=== PATIENT | female | born 1960 | race Caucasian/White ===

== ENCOUNTER → 2017-07-13 | Outpatient (CLI) | payer OTHER ==
[~2017-07-13] MED LIST: ESZO3TAB28 PO; FLUO20CA19 PO; IBUP200C8 PO; LEVO750T26 PO; MELO15TA24 PO
[2017-07-13 13:43] LABS: BASOPHILS # (AUTO) 0.02 x10^3/uL (0-0.1); BASOPHILS % (AUTO) 1 % (0-1); EOSINOPHILS # (AUTO) 0.17 x10^3/uL (0-0.4); EOSINOPHILS % (AUTO) 4 % (1-7); LYMPHOCYTES # (AUTO) 1.53 x10^3/uL (1-3.4); LYMPHOCYTES % (AUTO) 38 % (22-44); MD NO; MEAN CORPUSCULAR HEMOGLOBIN 31.4 pg (27.0-34.8); MEAN CORPUSCULAR HGB CONC 33.4 g/dL (32.4-35.8); MEAN PLATELET VOLUME 8.4 fL (7.4-10.4); MONOCYTES # (AUTO) 0.33 x10^3/uL (0.2-0.8); MONOCYTES % (AUTO) 8 % (2-9); NEUTROPHILS % (AUTO) 49 % (42-75); PLATELET COUNT 194 x10^3/uL (130-400); RED BLOOD COUNT 4.51 x10^6/uL (3.82-5.3); RED CELL DISTRIBUTION WIDTH 12.8 % (9.6-15.2)
[2017-07-13 13:46] LABS: MICROSCOPIC NOT IND
[2017-07-13 13:54] LABS: ANION GAP 9 mmol/L (5-15); CHLORIDE 107 mmol/L (98-107); CREATININE 0.76 mg/dL (0.55-1.02)
[2017-07-13 14:02] LABS: CULTURE INDICATED? NO
== END | disposition home or self-care (01) ==
LOC: STAR 12:42
PROVIDERS: ATTEND Orthopaedic Surgery
DX: Z01.818 Encounter for other preprocedural examination (principal); M17.11 Unilateral primary osteoarthritis, right knee
CPT/HCPCS: 36415; 80048; 81003; 85025; 87081; 93005

== ENCOUNTER 2017-07-17 05:52 | Inpatient (IN) | payer OTHER ==
[~2017-07-17] VITALS: Ht 162.6 cm; Wt 77.0 kg
[2017-07-17] MEDS ORDERED: KETOROLAC 60 MG/2 ML ONE (06:25)
[2017-07-17] MEDS ORDERED: ROPIvacaine/PF 0.2%, 20 ML ONE (06:25)
[2017-07-17] MEDS ORDERED: TRANEXAMIC ACID 100 MG/ML, 10ML ONE (06:25)
[2017-07-17] MEDS ORDERED: SODIUM CHLORIDE 0.9% 100 ML ONE (06:26)
[2017-07-17] MEDS ORDERED: EPINEPHRINE 1 MG/ML, 1ML ONE (06:26)
[2017-07-17] MEDS ORDERED: VANCOMYCIN 1,000 MG ONE (06:26)
[2017-07-17] MEDS ORDERED: MIDAZOLAM 1 MG/ML, 5ML ONE (06:39)
[2017-07-17] MEDS ORDERED: FAMOTIDINE 20 MG TABLET ONE (06:55)
[2017-07-17] MEDS ORDERED: GABAPENTIN 300 MG CAPSULE ONE (06:55)
[2017-07-17] MEDS ORDERED: ACETAMINOPHEN 500 MG TABLET ONE (06:56)
[2017-07-17] MEDS ORDERED: ACETAMINOPHEN 500 MG TABLET PO ONE (07:00)
[2017-07-17] MEDS ORDERED: GABAPENTIN 300 MG CAPSULE PO ONE (07:00)
[2017-07-17] MEDS ORDERED: FAMOTIDINE 20 MG TABLET PO ONE (07:00)
[2017-07-17] MEDS ORDERED: TAMSULOSIN 0.4 MG CAP.ER.24H PO ONE (07:00)
[2017-07-17] MEDS ORDERED: CEFAZOLIN 1,000 MG ONE (07:21)
[2017-07-17] MEDS ORDERED: DEXAMETHASONE 4 MG/ML, 1ML ONE (07:21)
[2017-07-17] MEDS ORDERED: PROPOFOL 50 ML ONE (07:30)
[2017-07-17] MEDS ORDERED: PROPOFOL 0 ML ONE (07:30)
[2017-07-17] MEDS ORDERED: KETAMINE 10 MG/ML, 20ML ONE (07:47)
[2017-07-17] MEDS ORDERED: ROPIvacaine/PF 0.2%, 100ML 550 ML (check volume) INJ ONE (08:00)
[2017-07-17] MEDS ORDERED: FENTANYL PF 100 MCG/2ML IV PRN (08:30)
[2017-07-17] MEDS ORDERED: DIAZEPAM 5 MG/ML, 2ML IVPush PRN (08:30)
[2017-07-17] MEDS ORDERED: PROMETHAZINE 25 MG/ML, 1ML IV PRN (08:30)
[2017-07-17] MEDS ORDERED: OXYcodone 5 MG/5 ML ORAL.SOL UDC PO PRN (08:30)
[2017-07-17] MEDS: D5%-0.45% NACL 1,000 ML IV SCH ×2 (08:59→15:51)
[2017-07-17] MEDS ORDERED: BISACODYL 10 MG SUPP PR PRN (09:00)
[2017-07-17] MEDS ORDERED: ACETAMINOPHEN 650 MG/20.3 ML UDC PO PRN (09:00)
[2017-07-17] MEDS ORDERED: ALUMINUM/MAG/SIMETHICONE 30 ML UDC PO PRN (09:00)
[2017-07-17] MEDS ORDERED: DIAZEPAM 5 MG TABLET PO PRN (09:00)
[2017-07-17] MEDS ORDERED: HYDROmorphone 1 MG/ML, 1ML IV PRN (09:00)
[2017-07-17] MEDS ORDERED: SENNA/DOCUSATE TABLET PO PRN (09:00)
[2017-07-17] MEDS: KETOROLAC 30 MG/1 ML IV SCH ×3 (09:00→23:23)
[2017-07-17] MEDS ORDERED: ZOLPIDEM 5MG TABLET PO PRN (09:00)
[2017-07-17] MEDS ORDERED: PROMETHAZINE 25 MG/ML, 1ML IM PRN (09:00)
[2017-07-17] MEDS ORDERED: DIPHENHYDRAMINE 50 MG CAPSULE PO PRN (09:00)
[2017-07-17] MEDS ORDERED: PROMETHAZINE 12.5 MG SUPP PR PRN (09:00)
[2017-07-17] MEDS ORDERED: MAGNESIUM HYDROXIDE 8%, 30ML UDC PO PRN (09:00)
[2017-07-17] MEDS ORDERED: ONDANSETRON 4 MG TABLET PO PRN (09:00)
[2017-07-17] MEDS ORDERED: KETOROLAC 30 MG/1 ML IV SCH (09:00)
[2017-07-17] MEDS ORDERED: OXYcodone IR 5MG TABLET PO PRN (09:00)
[2017-07-17] MEDS: TAMSULOSIN 0.4 MG CAP.ER.24H PO SCH (09:30)
[2017-07-17] MEDS ORDERED: TRANEXAMIC ACID 1,000 MG in SODIUM CHLORIDE 0.9% 100 ML IVPB ONE (09:30)
[2017-07-17] MEDS: OXYcodone IR 5MG TABLET PO SCH ×4 (13:00→23:23)
[2017-07-17 13:06] VITALS: BP 106/72
[2017-07-17] MEDS: CEFAZOLIN PMX 2GM/50ML 50 ML IVPB SCH ×2 (14:52→22:55)
[2017-07-17] MEDS: ASPIRIN 81 MG TABLET EC PO SCH (18:47)
[2017-07-17] MEDS: DOCUSATE 100 MG CAPSULE PO SCH ×2 (18:47→21:00)
[2017-07-17] MEDS: MULTIVITAMINS/MINERALS TABLET PO SCH (18:48)
[2017-07-17 21:53] VITALS: BP 98/62
[2017-07-17] MEDS: ONDANSETRON 2MG/ML, 2ML IV PRN (22:55)
[2017-07-18] MEDS: D5%-0.45% NACL 1,000 ML IV SCH (00:59)
[2017-07-18 01:13] VITALS: BP 99/63
[2017-07-18] MEDS: OXYcodone IR 5MG TABLET PO SCH ×3 (02:00→10:56)
[2017-07-18 04:54] VITALS: BP 111/74
[2017-07-18] MEDS: ONDANSETRON 2MG/ML, 2ML IV PRN (05:05)
[2017-07-18] MEDS: KETOROLAC 30 MG/1 ML IV SCH ×2 (05:05→08:52)
[2017-07-18] MEDS ORDERED: DEXAMETHASONE 4 MG/ML, 1ML IVPush SCH (06:00)
[2017-07-18] MEDS: ASPIRIN 81 MG TABLET EC PO SCH (06:35)
[2017-07-18 07:25] VITALS: BP 107/71
[2017-07-18] MEDS: MULTIVITAMINS/MINERALS TABLET PO SCH (08:52)
[2017-07-18] MEDS: DOCUSATE 100 MG CAPSULE PO SCH (08:53)
[2017-07-18] MEDS: TAMSULOSIN 0.4 MG CAP.ER.24H PO SCH (08:53)
[2017-07-18] MEDS ORDERED: KETOROLAC 30 MG/1 ML IV SCH (09:00)
[2017-07-18] MEDS ORDERED: FLU VACC QS2017-18 (36MOS+) UP/PF 0.5 ML IM-VACC ONE (09:00)
[2017-07-18 12:14] VITALS: BP 114/73
[2017-07-18] MEDS ORDERED: ASPI-496 PO (12:25)
[2017-07-18] MEDS ORDERED: OXYC5CAP2 PO (12:26)
== END 2017-07-18 12:53 | disposition home or self-care (01) | DRG 470 ==
LOC: OUT 05:52 → EDSTATUS 07:30 → ORIP 08:59 → 4NOR 10:39
PROVIDERS: ADMIT Orthopaedic Surgery; ATTEND Orthopaedic Surgery
PROC: 0SPC04Z Removal of Internal Fixation Device from Right Knee Joint, Open Approach (ICD-10-PCS; 2017-07-17)
PROC: 0SRC0J9 Replacement of Right Knee Joint with Synthetic Substitute, Cemented, Open Approach (ICD-10-PCS; principal; 2017-07-17 07:30)
DX: M17.11 Unilateral primary osteoarthritis, right knee (principal); Z23 Encounter for immunization; Z88.2 Allergy status to sulfonamides
CPT/HCPCS: 36415; 85014; 85018; 90686; C1713; J0171; J0690; J1100; J1885; J2250; J2405; J2704; J2795; J3370; C1776